=== PATIENT | female | born 1990 | race Caucasian/White ===

== ENCOUNTER 2017-05-28 21:45 | Emergency (ER) | payer SELFPAY ==
--- NOTE | 2017-05-28 22:39 | PD ---
HPI Chief Complaint Contractions Date Seen: May 28, 2017 Time Seen: 22:35 Travel History International Travel<30 Days: No Contact w/Intl Traveler<30Days: No Known Affected Area: No History of Present Illness HPI Patient is 27-year-old at 40 weeks sees Dayana Ga for care. She presents with contractions. Denies bleeding or rupture the membranes. heart rate tracing is reactive and she is having occasional contraction Weeks Gestation: 40 Para: 0 : 1 History Social History Alcohol Use: No Tobacco Use: No Substance Abuse: No Review of Systems General / Constitutional: No: Fever, Weight Gain, Chills, Other Eyes: No: Diploplia, Blurred Vision, Visual changes, Pain, Photophobia HENT: No: Headaches, Vertigo, Lightheadedness Cardiovascular: No: Irregular Rhythm, Chest Pain or Discomfort, Palpitations, Tachycardia, Syncope, Varicosities, Edema, Cyanosis Respiratory: No: Cough, Short of Breath, Other Gastrointestinal: Abdominal Pain, No: Nausea, Vomiting, Diarrhea Genitourinary: No: Decreased Urinary Output, Oliguria Musculoskeletal: No: Limited ROM, Weakness, Cramping, Edema, Pain Skin: No Rash, No Itching, No Dryness, No Lumps, No Change in Pigmentation, No Change in Nails, No Alopecia, No Lesions Neurologic: No: Weakness, Dizziness, Syncope, Focal Abnormalities, Coordination Problem, Headache, Slurred Speech, Seizures Psychiatric: No: Depression, Suicidal Ideations, Homicidal Ideation Endocrine: No: Heat Intolerance, Cold Intolerance, Polydipsia, Polyuria, Other Physical Exam Narrative GENERAL: Well-nourished, well-developed patient. SKIN: Warm and dry. HEAD: Normocephalic and atraumatic. EYES: No scleral icterus. No injection or drainage. ENT: No nasal drainage noted. Mucous membranes pink. Airway patent. NECK: Supple, trachea midline. No JVD. CARDIOVASCULAR: Regular rate and rhythm without murmurs, gallops, or rubs. RESPIRATORY: Breath sounds equal bilaterally. No accessory muscle use. BREASTS: Bilateral exam showed no masses , no retractions, no nipple discharge. ABDOMEN/GI: Abdomen soft, non-tender, bowel sounds present, no rebound, no guarding Gravid to [-40] weeks size Fundal Height: [40-] GENITOURINARY: External Genitalia: intact and normal in appearance BUS glands: [-] Cervix: [-] Dilatation: [1-] Effacement: [80-] Station: [-3] Presentation: [-vtx] Membranes: [intact ] Uterine Contractions: [occasional-] FHT's: Category: [1-] Baseline: [133-] Reactive: [yes-] Variability: [mod-] Decels: [-0] EXTREMITIES: No cyanosis or edema. BACK: Nontender without obvious deformity. No CVA tenderness. NEUROLOGICAL: Awake and alert. Motor and sensory grossly within normal limits. Five out of 5 muscle strength in all muscle groups. Normal speech. MDM Interpretation(s) This patient is 27-year-old at 40 weeks of resents planning contractions, denies bleeding or ruptured membranes. heart tracing is reactive and she is having occasional contraction. She sees Dayana Ga for care. Patient's cervix is 1 cm 80% -3, vertex Plan Plan to discharge home to bedrest, Tylenol use, increase oral liquids, heating pad or hot bath relief. Patient was offered a pain shot she didn't want that. She's return for and contractions are every 3-4 minutes and much stronger for about an hour and then return for recheck. Her follow-up with her OB provider otherwise Diagnosis Diagnosis: Primary Impression: False labor after 37 weeks of gestation without delivery Disposition: 01 DISCHARGE HOME Condition: Stable Patient Instructions: General Instructions, Having Your Baby: The Labor Process (GEN), Movement (ED), Abdominal Pain in (ED) Departure Forms: Tests/Procedures Stewart Guzman II, MD May 28, 2017 22:39
== END 2017-05-28 23:18 | disposition home or self-care (01) ==
LOC: HOBED 21:45 → EDBD 21:45 → HOBED 23:18
DX: O47.1 False labor at or after 37 completed weeks of gestation (principal); Z3A.40 40 weeks gestation of pregnancy
CPT/HCPCS: 59025

== ENCOUNTER 2017-05-31 16:48 | Inpatient (IN) | payer MEDICAID ==
[~2017-05-31] VITALS: Ht 157.5 cm; Wt 78.0 kg
[2017-05-31] VITALS (12 sets, daily range): BP systolic 115–134; BP diastolic 77–89; PULSE 63–78; RESP 18; TEMP 98.3–99.2
--- NOTE | 2017-05-31 18:00 | HHI.HP ---
HPI Chief Complaint Patient sent over by Dayana Ga for high blood pressure, gentle blood pressure 170/80 there Date Seen: May 31, 2017 Time Seen: 17:50 Travel History International Travel<30 Days: No Contact w/Intl Traveler<30Days: No Known Affected Area: No History of Present Illness HPI Patient is 27-year-old at 40 weeks and 3 days presents for further care [facility]'s office because of blood pressure reading of a 170/80. Heart rate is reactive and she is abad every 6-9 minutes her blood pressures here in the 130/70-85 range, however she dips 3+ urine protein Weeks Gestation: 40 Para: 0 : 1 History Social History Alcohol Use: No Tobacco Use: No Substance Abuse: No Review of Systems General / Constitutional: No: Fever, Weight Gain, Chills, Other Eyes: No: Diploplia, Blurred Vision, Visual changes, Pain, Photophobia HENT: No: Headaches, Vertigo, Lightheadedness Cardiovascular: No: Irregular Rhythm, Chest Pain or Discomfort, Palpitations, Tachycardia, Syncope, Varicosities, Edema, Cyanosis Respiratory: No: Cough, Short of Breath, Other Gastrointestinal: No: Nausea, Vomiting, Diarrhea Genitourinary: No: Decreased Urinary Output, Oliguria Musculoskeletal: No: Limited ROM, Weakness, Cramping, Edema, Pain Skin: No Rash, No Itching, No Dryness, No Lumps, No Change in Pigmentation, No Change in Nails, No Alopecia, No Lesions Neurologic: No: Weakness, Dizziness, Syncope, Focal Abnormalities, Coordination Problem, Headache, Slurred Speech, Seizures Psychiatric: No: Depression, Suicidal Ideations, Homicidal Ideation Endocrine: No: Heat Intolerance, Cold Intolerance, Polydipsia, Polyuria, Other Physical Exam Narrative GENERAL: Well-nourished, well-developed patient. SKIN: Warm and dry. HEAD: Normocephalic and atraumatic. EYES: No scleral icterus. No injection or drainage. ENT: No nasal drainage noted. Mucous membranes pink. Airway patent. NECK: Supple, trachea midline. No JVD. CARDIOVASCULAR: Regular rate and rhythm without murmurs, gallops, or rubs. RESPIRATORY: Breath sounds equal bilaterally. No accessory muscle use. BREASTS: Bilateral exam showed no masses , no retractions, no nipple discharge. ABDOMEN/GI: Abdomen soft, non-tender, bowel sounds present, no rebound, no guarding Gravid to [40-] weeks size Fundal Height: [40-] GENITOURINARY: External Genitalia: intact and normal in appearance BUS glands: [-] Cervix: [-1] Dilatation: [-1] Effacement: [-80] Station: [-2] Presentation: [vtx-] Membranes: [intact ] Uterine Contractions: [q 6-9 min-] FHT's: Category: [1-] Baseline: [-133] Reactive: [-yes] Variability: [-mod] Decels: [0-] EXTREMITIES: No cyanosis or edema. BACK: Nontender without obvious deformity. No CVA tenderness. NEUROLOGICAL: Awake and alert. Motor and sensory grossly within normal limits. Five out of 5 muscle strength in all muscle groups. Normal speech. Caprini VTE Risk Assessment Caprini VTE Risk Assessment: No/Low Risk (score <= 1) Caprini Risk Assessment Model Point Value = 1 Point Value = 2 Point Value = 3 Point Value = 5 Age 41-60 Minor surgery BMI > 25 kg/m2 Swollen legs Varicose veins or History of unexplained or recurrent spontaneous Oral contraceptives or hormone replacement Sepsis (< 1 month) Serious lung disease, including pneumonia (< 1 month) Abnormal pulmonary function Acute myocardial infarction Congestive heart failure (< 1 month) History of inflammatory bowel disease Medical patient at bed rest Age 61-74 Arthroscopic surgery Major open surgery (> 45 min) Laparoscopic surgery (> 45 min) Malignancy Confined to bed (> 72 hours) Immobilizing plaster cast Central venous access Age >= 75 History of VTE Family history of VTE Factor V Leiden Prothrombin [id number] Lupus anticoagulant Anticardiolipin antibodies Elevated serum homocysteine Heparin-induced thrombocytopenia Other congenital or acquired thrombophilia Stroke (< 1 month) Elective arthroplasty Hip, pelvis, or leg fracture Acute spinal cord injury (< 1 month) Prophylaxis Regimen Total Risk Factor Score Risk Level Prophylaxis Regimen 0-1 Low Early ambulation 2 Moderate Order ONE of the following: *Sequential Compression Device (SCD) *Heparin 5000 units SQ BID 3-4 Higher Order ONE of the following medications: *Heparin 5000 units SQ TID *Enoxaparin/Lovenox 40 mg SQ daily (WT < 150 kg, CrCl > 30 mL/min) *Enoxaparin/Lovenox 30 mg SQ daily (WT < 150 kg, CrCl > 10-29 mL/min) *Enoxaparin/Lovenox 30 mg SQ BID (WT < 150 kg, CrCl > 30 mL/min) AND/OR *Sequential Compression Device (SCD) 5 or more Highest Order ONE of the following medications: *Heparin 5000 units SQ TID (Preferred with Epidurals) *Enoxaparin/Lovenox 40 mg SQ daily (WT < 150 kg, CrCl > 30 mL/min) *Enoxaparin/Lovenox 30 mg SQ daily (WT < 150 kg, CrCl > 10-29 mL/min) *Enoxaparin/Lovenox 30 mg SQ BID (WT < 150 kg, CrCl > 30 mL/min) AND *Sequential Compression Device (SCD) Data Data Group B Strep: Negative Labs Urine dipstick is 3+ protein Assessment/Plan Assessment and Plan The patient is a 27-year-old GE 1 P0 at 40 weeks who was sent over by Dayana Ga for elevated blood pressures. The blood pressure 170/80, here on OB ED blood pressures 130s over 70s. However also urine dip shows 3+ protein, all else negative, she has trace edema at this time Impression-40 weeks intrauterine with mild preeclampsia, but pressures borderline however urine shows 3+ protein, patient is abad every 6-8 minutes cervix is favorable at the loose 1 cm 80% which is really unchanged from a when she was checked 3 days ago by me Plan to admit- check PIH lab, augment labor tonight with Pitocin to get contractions regular through the night and in the a.m. ruptured membranes begin Mg So4 at that point Stewart Guzman II, MD May 31, 2017 18:00
[2017-05-31] MEDS ORDERED: SODIUM CHLORID 0.9% 500 ML INJ 500 ML IV PRN (18:15)
[2017-05-31] MEDS ORDERED: LIDOCAINE HCL 1% 50 ML VIAL I-DERMAL PRN (18:15)
[2017-05-31] MEDS ORDERED: MINERAL OIL 10 ML VIAL TOPICAL PRN (18:15)
[2017-05-31] MEDS ORDERED: LIDOCAINE HCL 1% 50 ML VIAL INFIL PRN (18:30)
[2017-05-31] MEDS ORDERED: ONDANSETRON HCL 4 MG/2 ML VIAL IV PUSH PRN (18:30)
[2017-05-31] MEDS ORDERED: SODIUM CHLOR 0.9% 1000 ML INJ 1,000 ML IV PRN (18:45)
[2017-05-31] MEDS ORDERED: OXYTOCIN 30 UNITS-500ML PREMIX 500 ML IV ONE (19:00)
[2017-05-31] MEDS ORDERED: LACTATED RINGER'S 1000 ML INJ 1,000 ML IV PRN (19:00)
[2017-05-31] MEDS ORDERED: OXYTOCIN 30 UNITS-500ML PREMIX 500 ML IV SCH (19:00)
[2017-05-31 19:05] LABS: AUTOMATED NEUTROPHIL # 8.7 TH/MM3 (1.8-7.7); BASOPHIL # 0.1 TH/MM3 (0-0.2); BASOPHIL % 0.6 % (0.0-2.0); EOSINOPHIL # 0.1 TH/MM3 (0-0.4); EOSINOPHIL % 0.8 % (0.0-4.0); HEMATOCRIT 31.6 % (35.0-46.0); HEMO FLAGS DIFF FINAL; LYMPH % 19.6 % (9.0-44.0); LYMPHOCYTE # 2.4 TH/MM3 (1.0-4.8); MEAN CELL VOLUME 77.9 FL (80.0-100.0); MEAN CORPUSCULAR HEMOGLOBIN 27.7 PG (27.0-34.0); MEAN CORPUSCULAR HGB CONC 35.6 % (32.0-36.0); MONO % 8.3 % (0.0-8.0); NEUT % 70.7 % (16.0-70.0); PLATELET COUNT 170 TH/MM3 (150-450); RED BLOOD COUNT 4.06 MIL/MM3 (4.00-5.30); RED CELL DISTRIBUTION WIDTH 15.6 % (11.6-17.2); WHITE BLOOD COUNT 12.3 TH/MM3 (4.0-11.0)
[2017-05-31] MEDS ORDERED: PREN29TA PO ×2 (19:15)
[2017-05-31 20:23] LABS: ANION GAP 10 MEQ/L (5-15); AST (GOT) 21 U/L (15-37); BICARBONATE 22.1 MEQ/L (21.0-32.0); BLOOD UREA NITROGEN 18 MG/DL (7-18); CHLORIDE 106 MEQ/L (98-107); GLOMERULAR FILTRATION RATE 113 ML/MIN (>89); SODIUM (NA) 138 MEQ/L (136-145)
[2017-05-31 20:25] LABS: ALT (GPT) 23 U/L (10-53)
[2017-05-31 20:26] LABS: ALKALINE PHOSPHATASE 272 U/L (45-117); TOTAL BILIRUBIN ADULT 0.2 MG/DL (0.2-1.0)
[2017-05-31 21:40] LABS: BACTERIA, URINE OCC /hpf; BLOOD, URINE NEG (NEG); COMMENT (UR) CULT NOT INDICATED; CULTURE IF INDICATED CULT NOT INDICATED; GLUCOSE,URINE NEG (NEG); KETONE, URINE NEG (NEG); NITRITE,URINE NEG (NEG); PH, URINE 6.5 (5.0-8.5); SQUAMOUS EPITHELIAL CELL URINE 1 /hpf (0-5); URINE COLOR LIGHT-YELLOW (YELLW/STRAW)
[2017-05-31] MEDS: LACTATED RINGER'S 1000 ML INJ 1,000 ML IV SCH (22:08)
[2017-05-31 23:53] LABS: RUBELLA STATUS IMMUNE (IMMUNE)
[2017-06-01] VITALS (106 sets, daily range): BP systolic 95–147; BP diastolic 49–94; PULSE 63–139; RESP 16–18; TEMP 97.6–98.3; O2SAT 99–100
[2017-06-01] MEDS: LACTATED RINGER'S 1000 ML INJ 1,000 ML IV SCH ×2 (00:38→22:29)
[2017-06-01] MEDS ORDERED: fentaNYL 2MCG-BUPIV 0.125% INJ 100 ML ONE (02:05)
[2017-06-01] MEDS ORDERED: ePHEDrine/NS 25 MG/5 ML SYR ONE (02:56)
[2017-06-01] MEDS ORDERED: ePHEDrine/NS 25 MG/5 ML SYR IV PUSH PRN (03:15)
[2017-06-01] MEDS ORDERED: NO SYSTEM NARCOTICS PRN (03:15)
[2017-06-01] MEDS ORDERED: fentaNYL 2MCG-BUPIV 0.125% 100 ML EPIDURAL SCH (03:15)
[2017-06-01] MEDS ORDERED: DO NOT ADMINISTER ANTICOAGULANTS PRN (03:15)
[2017-06-01] MEDS ORDERED: ceFAZolin 2 GM PREMIX 50 ML IV SCH (10:45)
[2017-06-01] MEDS ORDERED: CITRIC ACID-SODIUM CITRATE LIQ 30 ML UDC ONE (10:45)
--- NOTE | 2017-06-01 10:50 | HHI.PR ---
TRAINING AND QUALITY MANAGER Note Note Patient has been pushing x 2 hours. On exam, there is vulvar edema but the extent of vaginal edema is profuse. The digital exam itself is difficult due to edema and is almost obliterating the canal. Head is at VIJI, with slight anterior asynclitism, at +1 station, no descent with expulsion efforts. Category 1 FHR tracing noted with moderate variability. Plan due to deep transverse arrest, caused partially from profuse vaginal edema. Alysa Durán MD Jun 01, 2017 10:50
[2017-06-01] MEDS ORDERED: SIMETHICONE 80 MG CHEWABLE TAB PO PRN (12:00)
[2017-06-01] MEDS ORDERED: OXYTOCIN 30 UNITS-500ML PREMIX 500 ML IV ONE (12:00)
[2017-06-01] MEDS ORDERED: ZOLPIDEM TARTRATE 5 MG TAB PO PRN (12:00)
[2017-06-01] MEDS ORDERED: oxyCODONE/ACETAMINOPHEN 5 MG/325 MG TAB PO PRN (12:00)
[2017-06-01] MEDS ORDERED: OXYTOCIN 10 UNIT/ML AMP IV ONE (12:00)
[2017-06-01] MEDS ORDERED: ONDANSETRON HCL 4 MG/2 ML VIAL IV PUSH ONE (12:00)
[2017-06-01] MEDS ORDERED: DEXAMETHASONE SOD PHOS 4 MG/ML VIAL IV ONE (12:00)
[2017-06-01] MEDS ORDERED: LIDOCAINE 2%/EPINEPHrine PF 1:200,000 20ML SDV INFIL ONE (12:00)
[2017-06-01] MEDS ORDERED: SODIUM CHLORIDE 0.9% 20 ML VIAL IV ONE (12:00)
[2017-06-01] MEDS ORDERED: PROPOFOL 200 MG/20 ML AMP IV ONE (12:00)
[2017-06-01] MEDS ORDERED: ceFAZolin INJ 1,000 MG VIAL IV ONE (12:00)
[2017-06-01] MEDS ORDERED: MIDAZOLAM HCL 2 MG/2 ML VIAL IV ONE (12:00)
[2017-06-01] MEDS ORDERED: ONDANSETRON HCL 4 MG/2 ML VIAL IV PUSH PRN (12:00)
[2017-06-01] MEDS ORDERED: SODIUM CHLORIDE 0.9% FLUSH 10 ML FLUSH IV FLUSH PRN (12:00)
[2017-06-01] MEDS ORDERED: ACETAMINOPHEN 325 MG TAB PO PRN (12:00)
[2017-06-01] MEDS ORDERED: LACTATED RINGER'S 1000 ML INJ 1,000 ML IV ONE (12:00)
[2017-06-01] MEDS ORDERED: SUCCINYLCHOLINE CHLORIDE 100 MG/5 ML SYRINGE IV PUSH ONE (12:00)
--- NOTE | 2017-06-01 12:04 | PD.OP ---
Operative Report Date of Surgery: Jun 01, 2017 Preoperative Diagnosis: (1) 40 weeks gestation of (2) Failure to progress in labor Postoperative Diagnosis: (1) 40 weeks gestation of (2) Failure to progress in labor Procedure: Primary Low Transverse Section Anesthesia: Wet tap previously, high spinal during operation which necessitated general anesthesia Surgeon: Alysa Durán Home Based Assistant(s): Mindy Kulkarni and Christie Connolly Resident Surgeon: Noemi Correia Operation and Findings: PREOPERATIVE DIAGNOSIS Failure to progress 40-5/7 weeks gestation Primary POSTOPERATIVE DIAGNOSIS Failure to progress 40-5/7 weeks gestation Primary PROCEDURE Primary low transverse section ANESTHESIA Wet tap previously, high spinal during operation which necessitated general anesthesia SURGEON Alysa Durán MD and Noemi Correia, R3 FINDINGS A normal viable male weight 9lb. 's 9/9. COMPLICATIONS None COUNTS Correct ESTIMATED BLOOD LOSS 600 cc FLUIDS Crystalloids CONDITION The patient tolerated the procedure well and went to the PACU for recovery in good condition. PROCEDURE IN DETAIL The patient was taken to the operating room, identified by name band and verbally. The time out was done and patient was prepped and draped in the usual sterile fashion for section. A Pfannenstiel incision was made then carried down to the fascia. The fascia was taken off the rectus muscle by blunt and sharp dissection. The rectus muscles were spread bluntly and the peritoneum entered under direct vision without difficulty. The incision was extended and a bladder blade was placed. A bladder flap was created in the usual fashion and the uterus was incised transversely along the lower uterine segment. Once the uterine cavity was entered, clear fluid was noted. The vertex was grasped and fundal pressure was applied. The head was delivered without complication. The remainder of the was delivered without difficulty. Cord clamping was delayed for 45 seconds before the cord was doubly clamped and cut and the baby was handed to the baby nurse. The cord blood was obtained and the placenta was delivered manually. The uterus was curettaged twice with a wet lap. The uterine incision was repaired with #1 chromic in a running locking fashion in one layer. Once this had been accomplished, all incisions were carefully inspected. Hemostasis was excellent. The gutters were cleaned of blood and debris. The peritoneum was reapproximated with #2 chromic then the rectus muscles were reapproximated with #1 chromic in a running fashion and then the fascia was repaired with #1 PDS in a running fashion bilaterally. The skin was then repaired with a 3-0 Monocryl in a subcuticular fashion and steri-strips were applied. The wound was sterilely dressed. The patient tolerated the procedure well and went to PACU for recovery in good condition. Noemi Correia MD, R3 Jun 01, 2017 12:04
[2017-06-01] MEDS ORDERED: PROPOFOL 1000 MG/100 ML INJ 100 ML ONE (12:07)
[2017-06-01] MEDS ORDERED: *MEPERIDINE 25 MG INJ VIAL PERIprocedural Use ONLY ONE (13:12)
[2017-06-01] MEDS: IBUPROFEN 600 MG TAB PO PRN (14:06)
[2017-06-01] MEDS: oxyCODONE/ACETAMINOPHEN 5 MG/325 MG TAB PO PRN (14:15)
[2017-06-01] MEDS ORDERED: HYDROmorphone HCL PCA 6 MG/30 ML IV SCH (14:15)
[2017-06-01] MEDS ORDERED: NALOXONE HCL 0.4 MG/ML AMP IV PUSH PRN (14:15)
[2017-06-01] MEDS ORDERED: diphenhydrAMINE HCL 50 MG/ML VIAL IV PUSH PRN (14:15)
[2017-06-01] MEDS ORDERED: SODIUM CHLORIDE 0.9% FLUSH 10 ML FLUSH IV FLUSH SCH (21:00)
[2017-06-01] MEDS ORDERED: OXYTOCIN 30 UNITS-500ML PREMIX 500 ML IV PRN (22:00)
[2017-06-01] MEDS ORDERED: PCA - TOTAL MG DILAUDID DELIVERED PER SHIFT OTHER SCH (22:00)
[2017-06-02] MEDS: IBUPROFEN 600 MG TAB PO PRN ×3 (00:30→14:09)
[2017-06-02] MEDS: LACTATED RINGER'S 1000 ML INJ 1,000 ML IV SCH (03:00)
[2017-06-02] MEDS: oxyCODONE/ACETAMINOPHEN 5 MG/325 MG TAB PO PRN ×2 (05:21→18:20)
[2017-06-02 06:08] LABS: AUTOMATED NEUTROPHIL # 17.4 TH/MM3 (1.8-7.7); BASOPHIL # 0.1 TH/MM3 (0-0.2); BASOPHIL % 0.4 % (0.0-2.0); EOSINOPHIL # 0.1 TH/MM3 (0-0.4); EOSINOPHIL % 0.5 % (0.0-4.0); HEMATOCRIT 26.7 % (35.0-46.0); HEMO FLAGS DIFF FINAL; LYMPH % 13.7 % (9.0-44.0); MEAN CELL VOLUME 79.7 FL (80.0-100.0); MEAN CORPUSCULAR HEMOGLOBIN 27.6 PG (27.0-34.0); MEAN CORPUSCULAR HGB CONC 34.6 % (32.0-36.0); NEUT % 78.4 % (16.0-70.0); PLATELET COUNT 141 TH/MM3 (150-450); RED BLOOD COUNT 3.34 MIL/MM3 (4.00-5.30); RED CELL DISTRIBUTION WIDTH 15.8 % (11.6-17.2); WHITE BLOOD COUNT 22.1 TH/MM3 (4.0-11.0)
--- NOTE | 2017-06-02 08:46 | HHI.OB ---
Subjective Remarks 27 year old female s/p C/S at 40 wks gestation, POD 1. BP slightly elevated 140s-150s. Patient reports she is feeling well, just has a mild- moderate headache. Bleeding is decreasing and pain is well-controlled. She is breast feeding and bonding well with baby. Not ambulating much so far, walked a bit yesterday with some pain. She is tolerating a diet without nausea or vomiting. She has not had a bowel movement. She has not passed gas. Denies chest pain, dysuria, shortness of breath, or calf pain. Objective Vitals/I&O Vital Signs Date Time Temp Pulse Resp B/P (MAP) Pulse Ox O2 Delivery O2 Flow Rate FiO2 06/01/17 15:37 18 06/01/17 13:40 147/88 (107) 06/01/17 13:40 98.3 06/01/17 13:40 75 16 100 06/01/17 13:15 98.3 67 20 146/87 (106) 100 Nasal Cannula 2 06/01/17 13:00 65 20 153/84 (107) 100 Nasal Cannula 2 06/01/17 12:45 74 21 158/106 (123) 100 Nasal Cannula 2 06/01/17 12:37 99 Nasal Cannula 2 06/01/17 12:33 99 40 06/01/17 12:30 76 14 154/91 (112) 100 Mechanical Ventilator 40 06/01/17 12:15 68 14 113/69 (84) 99 Mechanical Ventilator 40 06/01/17 12:05 98.1 69 106/62 (77) 99 Ambu Bag 06/01/17 10:40 100 06/01/17 10:35 100 06/01/17 10:30 120 06/01/17 10:25 111 06/01/17 10:20 126 06/01/17 10:15 110 06/01/17 10:10 138 06/01/17 10:05 102 06/01/17 10:00 98 06/01/17 09:55 111 06/01/17 09:50 116 06/01/17 09:45 123 06/01/17 09:40 122 06/01/17 09:35 112 06/01/17 09:30 111 Result Diagram: 06/02/17 0505/31/17 1830 Objective Remarks GENERAL: Well-nourished, well-developed patient. CARDIOVASCULAR: Regular rate and rhythm without murmurs, gallops, or rubs. RESPIRATORY: Breath sounds equal bilaterally. No accessory muscle use. ABDOMEN/GI: Abdomen soft, non-tender, bowel sounds present. Incision: Covered in dressing, will examine POD2 Fundus: Firm, non-tender at umbilicus. GENITOURINARY: Light to moderate bleeding. EXTREMITIES: No cyanosis or edema, non-tender, without signs of DVT. Medications and IVs Current Medications Medications (Trade) Dose Ordered Sig/Dylon Route Start Time Stop Time Status Last Admin Lactated Ringer's 1,000 ml @ 3,000 mls/hr Q20M PRN IV 05/31/17 19:00 (Xylocaine 1% Inj (50 ml)) 0.1 ml UNSCH X1 PRN I-DERMAL 05/31/17 18:15 06/03/17 18:14 (Zofran Inj) 4 mg Q6H PRN IV PUSH 05/31/17 18:30 (fentaNYL INJ) 50 mcg Q1H PRN IV PUSH 05/31/17 18:30 (fentaNYL INJ) 100 mcg Q1H PRN IV PUSH 05/31/17 18:30 06/01/17 01:11 (Xylocaine 1% Inj (50 ml)) 10 ml UNSCH X1 PRN INFIL 05/31/17 18:30 06/02/17 18:29 (Muri-Lube Oil) 10 ml UNSCH PRN TOPICAL 05/31/17 18:15 (Flu (Quadrivalent) Vaccine Inj) 0.5 ml ONCE ONCE IM 06/02/17 10:00 06/02/17 10:01 Fentanyl/ Bupivacaine HCl 100 ml @ 0 mls/hr TITRATE EPIDURAL 06/01/17 03:15 Cefazolin Sodium/ Dextrose 50 ml @ 100 mls/hr CONVERSION DEVELOPER IV 06/01/17 10:45 06/05/17 10:44 Lactated Ringer's 1,000 ml @ 100 mls/hr Q10H IV 06/01/17 17:00 06/02/17 12:59 06/01/17 22:29 Oxytocin 500 ml @ 100 mls/hr UNSCH X1 PRN IV 06/01/17 22:00 06/02/17 21:59 (NS Flush) 2 ml BID IV FLUSH 06/01/17 21:00 (NS Flush) 2 ml UNSCH PRN IV FLUSH 06/01/17 12:00 (Mylicon Chew) 80 mg QID PRN PO 06/01/17 12:00 (Tylenol) 650 mg Q6H PRN PO 06/01/17 12:00 (Motrin) 600 mg Q6H PRN PO 06/01/17 12:00 06/02/17 07:20 (Percocet 5-325 Mg) 1 tab Q4H PRN PO 06/01/17 12:00 (Percocet 5-325 Mg) 2 tab Q4H PRN PO 06/01/17 12:00 06/02/17 05:21 (Susannah-Colace) 2 tab Q12H PRN PO 06/01/17 12:00 (Ambien) 5 mg HS PRN PO 06/01/17 12:00 (M-M-R Ii Inj) 0.5 ml ONCE ONCE SQ 06/02/17 16:00 06/02/17 16:01 (Boostrix Inj) 0.5 ml ONCE ONCE IM 06/02/17 16:00 06/02/17 16:01 (Zofran Inj) 4 mg Q6H PRN IV PUSH 06/01/17 12:00 (Narcan Inj) 0.4 mg UNSCH PRN IV PUSH 06/01/17 14:15 (Benadryl Inj) 25 mg Q6H PRN IV PUSH 06/01/17 14:15 (Dilaudid EDGE POLISHER Inj) 6 mg UNSCH IV 06/01/17 14:15 06/01/17 15:37 EDGE POLISHER Dosage Infused (Pha) 1 Q8HR OTHER 06/01/17 22:00 Assessment/Plan Assessment and Plan 27 yo female s/p C/S, POD 1 - s/p C/S for failure to progress, required intubation due to high spinal anesthesia - Headache, call to make sure anesthesiology evaluates possible need for spinal patch - AFVSS, BP moderately high (140s-150s); continue to monitor - Continue routine care - Motrin and Percocet PRN pain - Encourage OOB - Pelvic rest x 6 wks. Will need 1 week incision check. - Contraception: Undecided - Anticipate D/C 06/03 or 06/04 Carlos Ritchie MD R2 Jun 02, 2017 08:46
[2017-06-02] MEDS ORDERED: INFLUENZA VIRUS VACCINE (QUADRIVALENT) 0.5 ML SYR IM ONE (10:00)
[2017-06-02] MEDS ORDERED: DIPHTH/TETANUS/ACEL PERTUSSIS (BOOSTER) 0.5 ML VIAL/PFS IM ONE (16:00)
[2017-06-02] MEDS ORDERED: MEASLES, MUMPS, RUBELLA VACCINE 0.5 ML VIAL SQ ONE (16:00)
[2017-06-02 20:17] VITALS: BP 137/87; PULSE 69; RESP 18; TEMP 98.8
[2017-06-03] MEDS: DOCUSATE SODIUM 50 MG/SENNA 8.6 MG TAB PO PRN (00:55)
[2017-06-03] MEDS: IBUPROFEN 600 MG TAB PO PRN ×2 (00:55→22:48)
[2017-06-03] MEDS: oxyCODONE/ACETAMINOPHEN 5 MG/325 MG TAB PO PRN ×3 (05:42→22:48)
[2017-06-03 08:20] VITALS: BP 142/84; PULSE 70; RESP 18; TEMP 98.6
--- NOTE | 2017-06-03 09:14 | HHI.OB ---
Subjective Remarks 27 year old female s/p C/S at 40 wks gestation, POD 2. AFVSS. Patient reports she is feeling well. Bleeding is decreasing and pain is well- controlled. She is breast feeding and bonding well with baby. Ambulating with moderate. She is tolerating a diet without nausea or vomiting. She has not had a bowel movement. She has passed gas. Denies chest pain, dysuria, shortness of breath, or calf pain. Objective Vitals/I&O Vital Signs Date Time Temp Pulse Resp B/P (MAP) Pulse Ox O2 Delivery O2 Flow Rate FiO2 06/03/17 06:42 18 06/02/17 20:17 98.8 69 18 137/87 (104) Result Diagram: 06/02/17 0517 05/31/17 1830 Objective Remarks GENERAL: Well-nourished, well-developed patient. CARDIOVASCULAR: Regular rate and rhythm without murmurs, gallops, or rubs. RESPIRATORY: Breath sounds equal bilaterally. No accessory muscle use. ABDOMEN/GI: Abdomen soft, non-tender, bowel sounds present. Incision: Covered in dressing (to remove today when patient showers). Will examine POD 3. Fundus: Firm, non-tender at umbilicus. GENITOURINARY: Light to moderate bleeding. EXTREMITIES: No cyanosis or edema, non-tender, without signs of DVT. Medications and IVs Current Medications Medications (Trade) Dose Ordered Sig/Dylon Route Start Time Stop Time Status Last Admin Lactated Ringer's 1,000 ml @ 3,000 mls/hr Q20M PRN IV 05/31/17 19:00 (Xylocaine 1% Inj (50 ml)) 0.1 ml UNSCH X1 PRN I-DERMAL 05/31/17 18:15 06/03/17 18:14 (fentaNYL INJ) 50 mcg Q1H PRN IV PUSH 05/31/17 18:30 (fentaNYL INJ) 100 mcg Q1H PRN IV PUSH 05/31/17 18:30 06/01/17 01:11 (Muri-Lube Oil) 10 ml UNSCH PRN TOPICAL 05/31/17 18:15 Fentanyl/ Bupivacaine HCl 100 ml @ 0 mls/hr TITRATE EPIDURAL 06/01/17 03:15 Cefazolin Sodium/ Dextrose 50 ml @ 100 mls/hr PULMONARY NURSE PRACTITIONER IV 06/01/17 10:45 06/05/17 10:44 (NS Flush) 2 ml BID IV FLUSH 06/01/17 21:00 (NS Flush) 2 ml UNSCH PRN IV FLUSH 06/01/17 12:00 (Mylicon Chew) 80 mg QID PRN PO 06/01/17 12:00 06/03/17 00:54 (Tylenol) 650 mg Q6H PRN PO 06/01/17 12:00 (Motrin) 600 mg Q6H PRN PO 06/01/17 12:00 06/03/17 00:55 (Percocet 5-325 Mg) 1 tab Q4H PRN PO 06/01/17 12:00 06/03/17 00:55 (Percocet 5-325 Mg) 2 tab Q4H PRN PO 06/01/17 12:00 06/03/17 05:42 (Susannah-Colace) 2 tab Q12H PRN PO 06/01/17 12:00 06/03/17 00:55 (Ambien) 5 mg HS PRN PO 06/01/17 12:00 (Zofran Inj) 4 mg Q6H PRN IV PUSH 06/01/17 12:00 Assessment/Plan Assessment and Plan 27 yo female s/p C/S, POD 2 - s/p C/S for failure to progress, required intubation due to high spinal anesthesia - AFVSS, BP normalizing; continue to monitor - Continue routine care - Motrin and Percocet PRN pain - Encourage OOB - Pelvic rest x 6 wks. Will need 1 week incision check. - Contraception: Undecided - Anticipate D/C 06/04 Carlos Ritchie MD R2 Jun 03, 2017 09:14
[2017-06-03] MEDS ORDERED: KETOROLAC TROMETHAMINE 30 MG/ML (IVP) VIAL IV PUSH ONE (13:45)
[2017-06-03] MEDS ORDERED: KETOROLAC TROMETHAMINE 60 MG/2 ML (IM) VIAL IM ONE (13:45)
[2017-06-03 15:30] VITALS: BP 129/77; PULSE 75; RESP 18; TEMP 99
[2017-06-03 20:16] VITALS: BP 125/77; PULSE 74; RESP 16; TEMP 98.4
[2017-06-04 08:00] VITALS: BP 120/78; PULSE 77; RESP 16; TEMP 98.2
--- NOTE | 2017-06-04 09:20 | HHI.OB ---
Subjective Post Operative Day: 3 Remarks 27 year old female s/p C/S at 40 wks gestation, POD 3. AFVSS. Patient reports she is feeling well. Bleeding is light and pain is well controlled. However, she continues to have spinal headache from complications with her epidural. She is breast feeding and bonding well with baby. Ambulating with moderate. She is tolerating a diet without nausea or vomiting. She has not had a bowel movement. She has passed gas. Denies chest pain, dysuria, shortness of breath, or calf pain. Objective Vitals/I&O Vital Signs Date Time Temp Pulse Resp B/P (MAP) Pulse Ox O2 Delivery O2 Flow Rate FiO2 06/03/17 20:16 98.4 74 16 125/77 (93) 06/03/17 15:30 99.0 75 18 129/77 (94) Result Diagram: 06/02/17 0517 05/31/17 1830 Objective Remarks GENERAL: Well-nourished, well-developed patient. CARDIOVASCULAR: Regular rate and rhythm without murmurs, gallops, or rubs. RESPIRATORY: Breath sounds equal bilaterally. No accessory muscle use. ABDOMEN/GI: Abdomen soft, non-tender, bowel sounds present. Incision: Clean dry and intact. Fundus: Firm, non-tender at umbilicus. GENITOURINARY: Light bleeding EXTREMITIES: No cyanosis or edema, non-tender, without signs of DVT. Medications and IVs Current Medications Medications (Trade) Dose Ordered Sig/Dylon Route Start Time Stop Time Status Last Admin Lactated Ringer's 1,000 ml @ 3,000 mls/hr Q20M PRN IV 05/31/17 19:00 (fentaNYL INJ) 50 mcg Q1H PRN IV PUSH 05/31/17 18:30 (fentaNYL INJ) 100 mcg Q1H PRN IV PUSH 05/31/17 18:30 06/01/17 01:11 (Muri-Lube Oil) 10 ml UNSCH PRN TOPICAL 05/31/17 18:15 Fentanyl/ Bupivacaine HCl 100 ml @ 0 mls/hr TITRATE EPIDURAL 06/01/17 03:15 Cefazolin Sodium/ Dextrose 50 ml @ 100 mls/hr NURSERY TEACHER IV 06/01/17 10:45 06/05/17 10:44 (NS Flush) 2 ml BID IV FLUSH 06/01/17 21:00 (NS Flush) 2 ml UNSCH PRN IV FLUSH 06/01/17 12:00 (Mylicon Chew) 80 mg QID PRN PO 06/01/17 12:00 06/03/17 00:54 (Tylenol) 650 mg Q6H PRN PO 06/01/17 12:00 (Motrin) 600 mg Q6H PRN PO 06/01/17 12:00 06/03/17 22:48 (Percocet 5-325 Mg) 1 tab Q4H PRN PO 06/01/17 12:00 06/03/17 00:55 (Percocet 5-325 Mg) 2 tab Q4H PRN PO 06/01/17 12:00 06/03/17 22:48 (Susannah-Colace) 2 tab Q12H PRN PO 06/01/17 12:00 06/03/17 00:55 (Ambien) 5 mg HS PRN PO 06/01/17 12:00 06/04/17 00:19 (Zofran Inj) 4 mg Q6H PRN IV PUSH 06/01/17 12:00 06/03/17 11:37 Assessment/Plan Assessment and Plan 27 yo female s/p C/S, POD 3 - s/p C/S for failure to progress, required intubation due to high spinal anesthesia. Blood patch to be administered today by anesthesia - AFVSS, BP normal; continue to monitor - Continue routine care - Motrin and Percocet PRN pain - Encourage OOB - Pelvic rest x 6 wks. Will need 1 week incision check. - Contraception: Patient is considering Nexplanon Discussed with Dr. Guzman Discharge Planning Anticipate D/C today 06/04, pending anesthesia recommendations after blood patch is administered Lisandra Desir MD R2 Jun 04, 2017 09:20
[2017-06-04] MEDS ORDERED: POLYETHYLENE GLYCOL 17 GM PKG PO SCH (10:00)
[2017-06-04 10:37] VITALS: BP 128/75; PULSE 73; RESP 21; O2SAT 98
[2017-06-04] MEDS ORDERED: SENN1TAB PO (10:46)
[2017-06-04] MEDS ORDERED: IBUP-232 PO (10:46)
[2017-06-04] MEDS ORDERED: OXYC1TAB63 PO (10:46)
--- NOTE | 2017-06-04 10:46 | HHI.DCPOC ---
Discharge Care Plan Diagnosis: (1) 40 weeks gestation of (2) Failure to progress in labor Report Symptoms to Your Doctor -Temperature above 100.5 degrees -Redness, of incision or excessive or foul smelling drainage -Unusual pain or calf pain -Increased vaginal bleeding -Painful or difficulty urinating -Feelings of extreme sadness or anxiety after 2 weeks Goals to Promote Your Health * To prevent worsening of your condition and complications * To maintain your health at the optimal level Directions to Meet Your Goals Take your medications as prescribed Follow your dietary instruction Follow activity as directed Ensure plenty of rest for recovery Drink fluids for hydration Keep your appointments as scheduled Take your immunizations and boosters as scheduled If your symptoms worsen call your PCP, if no PCP go to Urgent Care Center or Emergency Room Smoking is Dangerous to Your Health. Avoid second hand smoke Call the 24-hour crisis hotline for domestic abuse at Lisandra Desir MD R2 Jun 04, 2017 10:46
[2017-06-04] MEDS: DOCUSATE SODIUM 50 MG/SENNA 8.6 MG TAB PO PRN (14:31)
[2017-06-04] MEDS: IBUPROFEN 600 MG TAB PO PRN (14:31)
== END 2017-06-04 16:10 | disposition home or self-care (01) | DRG 766 ==
LOC: HOBED 16:48 → H2EA 17:56 → H1EA 06-01 13:26
PROVIDERS: ADMIT Obstetrics & Gynecology Maternal & Fetal Medicine; ATTEND Obstetrics & Gynecology Maternal & Fetal Medicine
PROC: 10D00Z1 Extraction of Products of Conception, Low, Open Approach (ICD-10-PCS; principal; 2017-06-01)
PROC: 00HU33Z Insertion of Infusion Device into Spinal Canal, Percutaneous Approach (ICD-10-PCS; 2017-06-01)
PROC: 3E0R3BZ Introduction of Anesthetic Agent into Spinal Canal, Percutaneous Approach (ICD-10-PCS; 2017-06-01)
PROC: 3E0R3GC Introduction of Other Therapeutic Substance into Spinal Canal, Percutaneous Approach (ICD-10-PCS; 2017-06-04)
DX: O14.04 Mild to moderate pre-eclampsia, complicating childbirth (principal); O62.2 Other uterine inertia; G97.1 Other reaction to spinal and lumbar puncture; Z37.0 Single live birth; Z3A.40 40 weeks gestation of pregnancy
CPT/HCPCS: 59025; 62273; 80053; 80307; 81001; 85025; 86762; 86850; 86900; 86901; J0330; J0690; J1100; J1170; J1885; J2175; J2250; J2405; J2590; J3010; J7120